=== PATIENT | male | born 1975 | race Caucasian/White ===

== ENCOUNTER 2021-07-09 12:11 | Inpatient (IN) | payer BC ==
--- NOTE | 2021-07-09 13:32 | ED ---
General Adult HPI - General Source: patient, police, RN notes reviewed, old records reviewed Mode of arrival: ambulatory Limitations: no limitations <Joe Hernandez - Last Filed: 07/09/21 14:19> <Bhanu Walker - Last Filed: 07/09/21 17:38> - General Chief complaint: Psychiatric Symptoms Stated complaint: Mental Health Time Seen by Provider: 07/09/21 13:05 - History of Present Illness Initial comments: 45-year-old male presents for psychiatric evaluation after attempted suicide. Patient states he did attempt to hang himself. He states he's been dealing with anxiety and depression for years. He has no previous inpatient psychiatric evaluation treatment. He is calm and cooperative at the time my evaluation without complaints. (Joe Hernandez) - Related Data Home Medications Medication Instructions Recorded Confirmed ARIPiprazole 5 mg PO DAILY 07/09/21 07/09/21 Allergies Allergy/AdvReac Type Severity Reaction Status Date / Time No Known Allergies Allergy Verified 07/09/21 13:21 Review of Systems ROS Other: All systems not noted in ROS Statement are negative. <Joe Hernandez - Last Filed: 07/09/21 14:19> ROS Other: All systems not noted in ROS Statement are negative. <Bhanu Walker - Last Filed: 07/09/21 17:38> ROS Statement: Those systems with pertinent positive or pertinent negative responses have been documented in the HPI. Past Medical History Past Medical History: No Reported History History of Any Multi-Drug Resistant Organisms: None Reported Past Surgical History: No Surgical Hx Reported Past Psychological History: Anxiety, Depression Smoking Status: Current some day smoker Past Alcohol Use History: Daily Past Drug Use History: Marijuana <Joe Hernandez - Last Filed: 07/09/21 14:19> General Exam Limitations: no limitations General appearance: alert, in no apparent distress Head exam: Present: atraumatic, normocephalic Eye exam: Present: normal appearance, PERRL ENT exam: Present: normal exam Neck exam: Present: normal inspection. Absent: tenderness, meningismus Respiratory exam: Present: normal lung sounds bilaterally. Absent: respiratory distress, wheezes Cardiovascular Exam: Present: regular rate, normal rhythm GI/Abdominal exam: Present: soft. Absent: distended, tenderness, guarding Extremities exam: Present: normal inspection, normal capillary refill Neurological exam: Present: alert, oriented X3, CN II-XII intact. Absent: motor sensory deficit Psychiatric exam: Present: depressed, flat affect, suicidal ideation Skin exam: Present: warm, dry, intact. Absent: cyanosis, diaphoretic <Joe Hernandez - Last Filed: 07/09/21 14:19> Course <Joe Hernandez - Last Filed: 07/09/21 14:19> Vital Signs 07/09/21 12:11 Temperature 98.0 F Pulse Rate 114 H Respiratory 19 Rate Blood Pressure 159/90 O2 Sat by Pulse 96 Oximetry - Reevaluation(s) Reevaluation #1: 07/09/21 13:32 Patient cleared for EPS evaluation. (Joe Hernandez) Reevaluation #2: 07/09/21 1500 Patient's care is signed out to Dr. Walker at shift change awaiting EPS evaluation. (Joe Hernandez) Medical Decision Making <Bhanu Walker - Last Filed: 07/09/21 17:38> - Medical Decision Making Patient was signed out to me pending psychiatric evaluation. He was medically cleared by the prior physician. EPS evaluated the patient determined that he does meet inpatient psychiatric criteria. Patient was therefore admitted to inpatient psychiatry in stable condition. Covid swab was ordered by myself. (Bhanu Walker) Disposition <Joe Hernandez - Last Filed: 07/09/21 14:19> <Bhanu Walker - Last Filed: 07/09/21 17:38> Clinical Impression: Encounter for psychiatric assessment, Attempted suicide Disposition: ADMITTED IP TO THIS HOSP Condition: Stable Referrals: None,Stated [Primary Care Provider] - 1-2 days
[2021-07-09 17:44] LABS: Amphetamine Screen,Urine Not Detected (NotDetected); Barbiturate Screen,Urine Not Detected (NotDetected); Benzodiazepines Screen,Urine Not Detected (NotDetected); Cocaine Screen,Urine Not Detected (NotDetected); Methadone Screen, Urine Not Detected (NotDetected); Opiate Screen,Urine Not Detected (NotDetected); Oxycodone Screen, Urine Not Detected (NotDetected); Phencyclidine Screen,Urine Not Detected (NotDetected); Tricyclic Antidepressant,Urine Not Detected (NotDetected); Urn Cannabinoid Scrn Detected (NotDetected)
[2021-07-09] MEDS ORDERED: MAGNESIUM HYDROXIDE 2,400 MG/10 ML CUP PO PRN (20:53)
[2021-07-09] MEDS ORDERED: ACETAMINOPHEN TAB 325 MG TAB PO PRN (20:53)
[2021-07-09] MEDS ORDERED: LORazepam 1 MG TAB PO PRN (20:53)
[2021-07-09] MEDS ORDERED: MAG HYDROX/AL HYDROX/SIMETH 30 ML CUP PO PRN (20:53)
[2021-07-09] MEDS ORDERED: HALOPERIDOL LACTATE 5 MG/ML 1 ML VIAL IM PRN (20:56)
[2021-07-09] MEDS ORDERED: haloperidoL 5 MG TAB PO PRN (20:56)
[2021-07-09] MEDS ORDERED: LORazepam 2 MG/ML INJ IM PRN (20:56)
[2021-07-09 22:04] LABS: Appearance,Urine Cloudy (Clear); Bacteria,Urine Rare /hpf; Bilirubin,Urine Negative (Negative); Blood,Urine Trace (Negative); Color,Urine Yellow; Glucose,Urine (UA) Negative (Negative); Hyaline Casts,Urine 7 /lpf (0-2); Ketones,Urine 2+ (Negative); Leukocyte Esterase,Urine Trace (Negative); Mucus,Urine Many /hpf; Nitrite,Urine Negative (Negative); PH, Urine 5.5 (5.0-8.0); Protein,Urine 1+ (Negative); RBC,Urine <1 /hpf (0-5); Specific Gravity,Urine 1.028 (1.001-1.035); Squamous Epithelial Cell,Urine <1 /hpf (0-4); WBC,Urine 4 /hpf (0-5)
--- NOTE | 2021-07-10 04:51 | P.PN ---
Progress Note - Text Progress Note Date: 07/10/21 Notified of consult. Patient sleeping. Will attempt to evaluate tomorrow.
[2021-07-10 07:47] LABS: Basophils % (A) 1 %; Eosinophils # (A) 0.1 k/uL (0-0.7); Eosinophils % (A) 2 %; HCT 47.3 % (39.0-53.0); HGB 16.1 gm/dL (13.0-17.5); Lymphocytes # (A) 1.2 k/uL (1.0-4.8); Lymphocytes % (A) 25 %; MCH 31.9 pg (25.0-35.0); MCV 93.9 fL (80.0-100.0); Mean Platelet Volume 7.3; Monocytes # (A) 0.4 k/uL (0-1.0); Monocytes % (A) 7 %; Neutrophils % (A) 63 %; Platelet Count 232 k/uL (150-450); RBC 5.03 m/uL (4.30-5.90); WBC 4.9 k/uL (3.8-10.6)
[2021-07-10 08:08] LABS: ALT 44 U/L (4-49); AST 40 U/L (17-59); African American GFR (CKD) >90 (>60 ml/min/1.73 sqM); Albumin 4.1 g/dL (3.5-5.0); Alkaline Phosphatase 85 U/L (38-126); Anion Gap 8 mmol/L; Blood Urea Nitrogen 15 mg/dL (9-20); Calcium 9.6 mg/dL (8.4-10.2); Carbon Dioxide 24 mmol/L (22-30); Chloride 105 mmol/L (98-107); Glucose 79 mg/dL (74-99); Non-African American GFR(CKD) >90 (>60 ml/min/1.73 sqM); Sodium 137 mmol/L (137-145); Total Protein 8.1 g/dL (6.3-8.2)
[2021-07-10] MEDS: NICOTINE 14MG/24HR PATCH TRANSDERM SCH (09:39)
[2021-07-10] MEDS ORDERED: ARIPiprazole 5 MG TAB PO STA (11:37)
[2021-07-10] MEDS ORDERED: CITALOPRAM HYDROBROMIDE 20 MG TAB PO STA (11:37)
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
[2021-07-10 15:05] LABS: Chol/HDL Ratio 3.82 Ratio
--- NOTE | 2021-07-11 02:46 | P.CONS ---
History of Present Illness - Reason for Consult Consult date: 07/10/21 - History of Present Illness Patient is a 45-year-old male with a PMH of tobacco abuse and marijuana abuse presented to the emergency room with complaints of depression and suicidal ideation. The patient reports that he has been dealing with social stressors including splitting up with us which has been quite difficult for him. The patient currently attempted to hang himself though was unsuccessful. He denied any medical conditions and does not take any medications at home. He denied any additional substances aside from marijuana. Smokes 1 pack of cigarettes daily. Review of systems: Pertinent positives and negatives as discussed in HPI, a complete review of systems was performed and all other systems are negative. Physical examination: General: non toxic, no distress, appears at stated age, normal weight Derm: no unusual rashes/lesions no unusual ecchymoses, warm, dry Head: atraumatic, normocephalic, symmetric Eyes: EOMI, no lid lag, anicteric sclera, pupils equal round reactive to light ENT: Nose and ears atraumatic, no thrush, no pharyngeal erythema Neck: No thyromegaly, no cervical lymphadenopathy, trachea midline, supple Mouth: no lip lesion, mucus membranes moist Cardiovascular: S1S2 reg, no murmur, positive posterior tibial pulse bilateral, no edema, capillary refill less than 2 seconds Lungs: CTA bilateral, no rhonchi, no rales , no accessory muscle use Abdominal: soft, nontender to palpation, no guarding, no appreciable organomegaly, normal bowel sounds Ext: no gross muscle atrophy, muscle strength 5 out of 5 in all 4 extremities grossly, no contractures, Neuro: CN II-XI grossly intact, light touch intact all 4 extremities, finger to nose within normal limits, Psych: Alert, oriented, appropriate affect Assessment/plan Marijuana, tobacco abuse -Advised on importance of cessation Depression and suicidal ideation -As per psychiatry Thank you for allowing us to participate in the care of this patient. We will follow peripherally. Do not hesitate to contact us with questions. Someone can be reached from the [facility] hospitalist group at all hours of the day at [phone]. Past Medical History Past Medical History: No Reported History History of Any Multi-Drug Resistant Organisms: None Reported Past Surgical History: No Surgical Hx Reported Past Psychological History: Anxiety, Depression Smoking Status: Current some day smoker Past Alcohol Use History: Daily Past Drug Use History: Marijuana - Past Family History Father Family Medical History: Chest Pain / Angina Medications and Allergies Home Medications Medication Instructions Recorded Confirmed Type ARIPiprazole 5 mg PO DAILY 07/09/21 07/09/21 History Allergies Allergy/AdvReac Type Severity Reaction Status Date / Time No Known Allergies Allergy Verified 07/09/21 13:21 Physical Exam Vitals: Vital Signs Temp Pulse Resp BP 07/10/21 06:36 97.3 F L 70 16 118/60 Results CBC & Chem 7: 07/10/21 07:09 07/10/21 07:09 Labs: Abnormal Lab Results - Last 24 Hours (Table) 07/10/21 Range/Units 07:09 Triglycerides 157.00 H (0.00-149.00) mg/dL Cholesterol 239.00 H (0.00-200.00) mg/dL LDL Cholesterol, Calc 145.0 H (0.0-131.0) mg/dL HDL Cholesterol 62.60 H (40.00-60.00) mg/dL
[2021-07-11] MEDS: NICOTINE 14MG/24HR PATCH TRANSDERM SCH (08:23)
[2021-07-11] MEDS: ARIPiprazole 5 MG TAB PO SCH (08:23)
[2021-07-11] MEDS: CITALOPRAM HYDROBROMIDE 20 MG TAB PO SCH (08:23)
--- NOTE | 2021-07-11 09:45 | P.PN ---
Progress Note - Text Progress Note Date: 07/11/21 Interval History: Patient was seen wandering the hallways and was directable and agreeable to speak with grant writer in the office., The patient is not reporting any suicidal or homicidal ideation, intention, and/or plan. He is not reporting any auditory or visual hallucinations. The patient reports that he has been taking this time to plan out how he was going to speak with his and to maintain healthy boundaries. The patient states that he does own the home and that if they reported to be , that she would be the one to leave the home. He expresses a strong desire to live and states that he wants to live for himself, his goals, and for his children. He has been adherent with his medications and is not endorsing any significant side effects at this time. When asked about any alcohol withdrawal symptoms, the patient denies any at this time. He states that he is feeling "pretty good." He does wish to exercise the right to fill out a 72 hour notice for discharge. The patient does acknowledge that the suicide attempt was stupid and expresses regret for his actions. Mental Status Exam: General Appearance: Patient appears to be stated age is alert, directable, and cooperative. Behavior: Patient is calmly seated without any agitated behavior. Speech: Patient's speech is fluent and nonpressured. Mood/Affect: Mood is improving mildly, affect is congruent and constricted. Suicidality/Homicidality: Patient denies having any suicidal or homicidal ideation intent or plan. Perceptions: Patient denies any visual hallucinations and denies any auditory hallucinations Though content/process: There is no evidence of any delusional thought content and thought process is linear and goal-directed. Memory and concentration: AOX3, grossly intact for the purposes of this session Judgment and insight: Improving mildly Vital Signs Temp 97.1 F L 07/11/21 06:46 Pulse 63 07/11/21 06:46 Resp 16 07/11/21 06:46 BP 116/65 07/11/21 06:46 Pulse Ox 98 07/09/21 22:13 Laboratory Results - Last 24 Hours 07/10/21 07/10/21 07:09 07:[address] Glu mg/dL 111 Hemoglobin A1c 5.5 Triglycerides 157.00 H Cholesterol 239.00 H LDL Cholesterol, Calc 145.0 H VLDL Cholesterol, Calc 31.40 HDL Cholesterol 62.60 H Cholesterol/HDL Ratio 3.82 Assessment Major depressive disorder, with anxious features Alcohol use disorder Cannabis use disorder Plan: -Patient continues to meet criteria for inpatient psychiatric admission for symptom stabilization and safety. Patient has signed adult voluntary form and medication consent and was placed in patient's chart. The patient filled out a 72 hour AMA notice this morning at 9:30 AM. -Medications: Increase citalopram to 40 mg by mouth daily for depression/anxiety Increase Abilify to 5 mg daily for augmentation of antidepressant -When necessary Ativan and Geodon for agitation/aggression. -NRT - nicotine patch -SW on board for discharge planning. Encouraged the patient to participate in milieu.
[2021-07-12] MEDS: CITALOPRAM HYDROBROMIDE 20 MG TAB PO SCH (08:37)
[2021-07-12] MEDS: ARIPiprazole 5 MG TAB PO SCH (08:37)
[2021-07-12] MEDS: NICOTINE 14MG/24HR PATCH TRANSDERM SCH ×2 (08:37→18:44)
--- NOTE | 2021-07-12 10:46 | P.PN ---
Progress Note - Text Progress Note Date: 07/12/21 Interval History: Patient was seen wandering the hallways and was directable and agreeable to s peak with underwriter mortgage loan in the office. Currently, the patient is reporting that he is feeling better. He reports that he has been thinking about what to do after he finishes his 30 years with [employer] and expresses a desire to enter the counseling and mental health field. He currently is not reporting any suicidal or homicidal ideation, and/or plan. He is denying any auditory or visual hallucinations. He is not reporting paranoia or other delusions. Patient reports that he has been sleeping well and endorses no significant issues regarding his appetite. He reports that his energy has improved. He does express understanding that he will require aftercare appointments prior to discharge. Mental Status Exam: General Appearance: Patient appears to be stated age is alert, directable, and cooperative. Behavior: Patient is calmly seated without any agitated behavior. Speech: Patient's speech is fluent and nonpressured. Mood/Affect: Mood is improving mildly, affect is congruent and euthymic. Suicidality/Homicidality: Patient denies having any suicidal or homicidal ideation intent or plan. Perceptions: Patient denies any visual hallucinations and denies any auditory hallucinations Though content/process: There is no evidence of any delusional thought content and thought process is linear and goal-directed. Memory and concentration: AOX3, grossly intact for the purposes of this session Judgment and insight: Improving mildly Assessment Major depressive disorder, with anxious features Alcohol use disorder Cannabis use disorder Plan: -Patient continues to meet criteria for inpatient psychiatric admission for symptom stabilization and safety. Patient has signed adult voluntary form and medication consent and was placed in patient's chart. The patient filled out a 72 hour AMA notice this morning at 9:30 AM. The 72 hours do not include and this Thursday. -Medications: Continue 40 mg by mouth daily for depression/anxiety Continue Abilify 5 mg daily for augmentation of antidepressant -When necessary Ativan and Haldol for agitation/aggression. -NRT - nicotine patch -SW on board for discharge planning. Encouraged the patient to participate in milieu.
[2021-07-13] MEDS: NICOTINE 14MG/24HR PATCH TRANSDERM SCH (08:23)
[2021-07-13] MEDS: CITALOPRAM HYDROBROMIDE 20 MG TAB PO SCH (08:23)
[2021-07-13] MEDS: ARIPiprazole 5 MG TAB PO SCH (08:24)
--- NOTE | 2021-07-13 09:59 | P.PN ---
Progress Note - Text Progress Note Date: 07/13/21 Interval history: Patient was seen wandering the hallways and was directable and agreeable to s peak with commercial lines underwriter. Patient was fairly calm and appropriate with commercial lines underwriter today. He claims that he is doing fairly well on medications and that his anxiety and would've been improving. He states that he has been going to some groups and participating less as he can. He denied any overt manic complaints states he slept well. He was asking potential discharge. he was furutre oriented. At this time patient denies any suicidal or homicidal ideations intent or plan. Denies any Auditory or visual hallucinations. Patient denies any side effects from the medications and has been compliant with meds. Mental status exam: General Appearance: Patient appears to be stated age is alert, directable, and cooperative. Has a long marquez and glasses. Behavior: No agitated behavior. Patient is calm and directable Speech: Patient's speech is fluent and nonpressured. Mood/Affect: Mood is improving mildly, affect is congruent and constricted. Suicidality/Homicidality: Patient denies having any suicidal or homicidal ideation intent or plan. Perceptions: Patient denies any auditory or visual hallucinations. Though content/process: There is no evidence of any delusional thought content and thought process is linear and goal-directed. focused on discharge Memory and concentration: AOX3, grossly intact for the purposes of this session Judgment and insight: improving mildly Assessment/Plan: Continue with current diagnosis. Patient continues to meet criteria for inpatient psychiatric admission for symptom stabilization and safety.Patient will be maintained on current psychotropic medication regimen. Monitor for medication compliance and for any psychotropic medication side effects. Will continue to monitor ongoing response to treatment. Encouraged participation in milieu.
[2021-07-13] MEDS: NICOTINE GUM (POLACRILEX) 2 MG GUM BUCCAL PRN ×3 (10:04→22:22)
[2021-07-14] MEDS: ARIPiprazole 5 MG TAB PO SCH (09:02)
[2021-07-14] MEDS: NICOTINE GUM (POLACRILEX) 2 MG GUM BUCCAL PRN ×3 (09:02→22:20)
[2021-07-14] MEDS: CITALOPRAM HYDROBROMIDE 20 MG TAB PO SCH (09:02)
[2021-07-14] MEDS: NICOTINE 14MG/24HR PATCH TRANSDERM SCH (09:02)
--- NOTE | 2021-07-14 10:55 | P.PN ---
Progress Note - Text Progress Note Date: 07/14/21 Interval history: Patient was seen wandering the hallways and was directable and agreeable to s peak with database report writer. Patient was fairly calm and appropriate with database report writer today. He spoke a bit about his family. He claims that he is doing better overall today. He claims that he is doing fairly well on medications and that his anxiety and depression are improving. He states that he has been going to some groups and participating less as he can. He claims that he slept better last night however was again agreeable to try melatonin tonight. At this time patient denies any suicidal or homicidal ideations intent or plan. Denies any Auditory or visual hallucinations. Patient denies any side effects from the medications and has been compliant with meds. Mental status exam: General Appearance: Patient appears to be stated age is alert, directable, and cooperative. Has a long marquez and glasses. Behavior: No agitated behavior. Patient is calm and directable Speech: Patient's speech is fluent and nonpressured. Mood/Affect: Mood is improving mildly, affect is congruent and constricted. Suicidality/Homicidality: Patient denies having any suicidal or homicidal ideation intent or plan. Perceptions: Patient denies any auditory or visual hallucinations. Though content/process: There is no evidence of any delusional thought content and thought process is linear and goal-directed. focused on discharge Memory and concentration: AOX3, grossly intact for the purposes of this session Judgment and insight: improving mildly Assessment/Plan: Continue with current diagnosis. Patient continues to meet criteria for inpatient psychiatric admission for symptom stabilization and safety.Patient will be maintained on current psychotropic medication regimen, with the exception of adding melatonin 5 mg daily at bedtime. Monitor for medication compliance and for any psychotropic medication side effects. Will continue to monitor ongoing response to treatment. Encouraged participation in milieu.
[2021-07-14] MEDS ORDERED: MELATONIN 5 MG TABLET PO SCH (21:00)
[2021-07-15 06:51] VITALS: BP 115/70; PULSE 50; RESP 16; TEMP 97.2
[2021-07-15] MEDS: CITALOPRAM HYDROBROMIDE 20 MG TAB PO SCH (08:05)
[2021-07-15] MEDS: NICOTINE 14MG/24HR PATCH TRANSDERM SCH (08:05)
[2021-07-15] MEDS: ARIPiprazole 5 MG TAB PO SCH (08:06)
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
[2021-07-15] MEDS: NICOTINE GUM (POLACRILEX) 2 MG GUM BUCCAL PRN (10:47)
== END 2021-07-15 17:07 | disposition home or self-care (01) | DRG 885 ==
LOC: EC 12:11 → 3MHU 20:43
PROVIDERS: ADMIT Psychiatry & Neurology Psychiatry; ATTEND Psychiatry & Neurology Psychiatry
DX: F33.9 Major depressive disorder, recurrent, unspecified (principal); T71.162A Asphyxiation due to hanging, intentional self-harm, initial encounter; F10.10 Alcohol abuse, uncomplicated; F12.10 Cannabis abuse, uncomplicated; F17.210 Nicotine dependence, cigarettes, uncomplicated; F41.9 Anxiety disorder, unspecified; G47.00 Insomnia, unspecified; Z79.899 Other long term (current) drug therapy; Z81.8 Family history of other mental and behavioral disorders; Z20.822 Contact with and (suspected) exposure to COVID-19
CPT/HCPCS: 80053; 80061; 80306; 81001; 82075; 83036; 84443; 85025; 87635; 99285